=== PATIENT | male | born 1950 | race Caucasian/White ===

== ENCOUNTER 2016-11-18 15:36 | Inpatient (IN) | payer OTHER ==
[~2016-11-18] VITALS: Ht 182.9 cm; Wt 110.8 kg
--- NOTE | ~2016-11-18 | DS ---
ADMIT: 11/18/2016 RM/LOC: 315 [facility] MR#: [id number] [facility]#: [id number] [address] [place], [place] [address] JULIO DEL ANGEL [address] [place] [address] General Discharge Summary SEX: M AGE: 66 : 1950 ADMISSION DATE: 11/18/2016 DISCHARGE DATE: 11/22/2016 SERVICE: Neurosurgery. REASON FOR ADMISSION: 1. Fall. 2. Right occipital bone fracture. 3. Right temporal bone fracture. 4. TBI (traumatic brain injury). 5. Right-sided subdural hematoma. 6. Subconjunctival hemorrhage with bilateral periorbital ecchymoses and edema. 7. Hyperglycemia. CONSULTS: 1. Dr. Solorzano with Family Practice. 2. Dr. Uribe with Ophthalmology. 3. Dr. Martinez with Ear, Nose, and Throat. HOSPITAL COURSE: Mr. Del Angel is a very pleasant, but unfortunate gentleman, who on the day of admission was working on a rental property where they had a leak on the roof near the chimney. He remembers going backwards down the roof to reach the ladder to climb down and the next thing he remembered was waking up to the ambulance crew. When human resources support specialist arrived, he was amnestic to the events and was confused and bleeding from his right ear. He was brought to the [facility] emergency room for further evaluation. A CT scan of his head, neck, and chest were obtained and revealed bibasilar skull fractures, right temporal bone fractures, and a subdural hematoma. Dr. Landis was consulted. His CT scan of his neck also revealed some cervical spondylosis with degenerative disk disease, especially at C5-6 as well as C6- 7. He was admitted to the intensive care unit for close monitoring and care. Dr. Solorzano with Family Practice was consulted for assistance with management of his hyperglycemia and hypertension. Dr. Uribe with Ophthalmology was consulted for a subconjunctival hemorrhage and to rule out globe rupture. A thoracic CT scan was obtained to rule out traumatic injury. This did reveal a nondisplaced fracture of the transverse process of L1 but no other abnormalities. Hospital day #2, he was awake and alert. He continued with right CSF otorrhea. He was transferred out of the intensive care unit to the [facility] floor. Hospital day #3, he was awake and alert. He had no neurological deficit. He had no CSF drainage from his right ear. Hospital day #4, he was awake and alert, he was afebrile and his vital signs were stable. He was moving all extremities x4 with 5/5 strength. He did report that his vision was improving. He complained of a headache in the right temporal/occipital area. He complained of decreased hearing in his right ear. Nursing reported an altered unstable gait. He had periorbital ecchymoses bilaterally. Physical Therapy and Occupational Therapy were consulted. Speech Therapy was consulted for neurocognitive evaluation. Dr. Martinez with Ear, Nose, and Throat was consulted for his continued right otorrhea off and ADMIT: 11/18/2016 RM/LOC: 315 [facility] MR#: [id number] [address] [place] [id number] JULIO DEL ANGEL [address] [place] [id number] General Discharge Summary SEX: M AGE: 66 : 1950 on as well as a decreased hearing in his right ear and his temporal bone fracture. Hospital day #5, he was awake and alert. He was afebrile and his vital signs were stable. He was ambulating in the halls. He continued with some bloody otorrhea from his right ear off and on. He did report he felt that this was decreasing in amount. He continued with decreased hearing to his right ear. His bilateral periorbital ecchymosis was stable. He was evaluated by the inpatient rehabilitation unit and deemed to be an appropriate candidate for their inpatient rehabilitation with a plan to return to his prior function of living status. On the day of discharge, he was deemed medically fit for transfer to the inpatient rehabilitation unit. DISCHARGE CONDITION: Good. MEDICATIONS: 1. Cozaar 100 mg p.o. daily. 2. Glucophage 500 mg b.i.d. 3. Glucotrol XL 5 mg daily. 4. NovoLog low-dose sliding scale insulin before meals and at bedtime. If the blood sugar is 131-180, give 2 units; 181-240, 4 units, 241-300, give 6 units; 301-350, give 8 units; 351-400, give 10 units, and over 400, give 12 units and call the doctor. 5. Maalox 30 mL p.o. q.6 hours p.r.n. 6. Percocet 5 one to two p.o. q.4 hours p.r.n. 7. Surfak 240 mg b.i.d. p.r.n. 8. Tylenol 650 mg tablet elixir or suppository q.4 p.r.n. 9. Nitrostat 0.4 mg sublingual q.5 minutes x3 p.r.n. DISCHARGE INSTRUCTIONS: Per Dr. Allen should utilize fall precautions. He can have an ADA diet. He should continue with physical therapy, occupational ADMIT: 11/18/2016 RM/LOC: 315 [facility] MR#: [id number] [address] [place] [id number] MER, JULIO Darwin [address] [place] [address] General Discharge Summary SEX: M AGE: 66 : 1950 therapy, and speech therapy. He should have a noncontrast head CT prior to his appointment with Dr. Allen. He will call with any questions or concerns including neurological worsening, signs or symptoms of infection, or any other issues. FOLLOWUP: He will follow up with Dr. Allen in 1 month. He will follow up with Dr. Martinez in 2-3 weeks. DISPOSITION: He was discharged to the inpatient rehabilitation unit. Total [id number] time for the discharge planning and care coordination was 30 minutes. Karlene Donnelly APRN / Joni Landis MD / bryant JOB #: [id number] CC: Joni aLndis MD, Attending Physician NO FAMILY PHYSICIAN, Family Physician
--- NOTE | ~2016-11-18 | HP ---
ADMIT: 11/18/2016 RM/LOC: 315 [facility] MR#: [id number] [address] [address] JULIO DEL ANGEL [address] [place] [address] History and Physical SEX: M AGE: 66 : 1950 DATE OF SERVICE: HISTORY OF PRESENT ILLNESS: This 66-year-old male was seen by me in the emergency room. He apparently was working on a chimney got wet on the roof of the house and fell. He really could not give the details for that following fall primarily because he had a transient period of loss of consciousness, but by the time go to a hospital, he was awake and alert, and he was primarily complaining of pain between the shoulder blades, which is new. He denies any neck pain. He has numbness in his toes, but he says this is old and even though he says he is not diabetic, he is diabetic. He denies any tingling or numbness anywhere else, denies any weakness in his upper or lower extremities. He denies any chest or abdominal pain, does not have any neck pain. He went on to have CT scan of the brain. The CT scan of the brain showed a right temporal bone soft joint extended into the right mastoid. In addition, he has right occipital bone fracture. I reviewed the CT scan. There was a question of subdurals questionable. I could not see any . The CT of his cervical spine does show evidence of cervical spondylosis with degenerative disk disease especially at C5-6 as well as C6-7 with narrowing of the disk space and a very minimal listhesis of C5 on C6. PAST MEDICAL HISTORY: Nil of note. ALLERGIES: HE IS ALLERGIC TO CODEINE. MEDICATIONS: He is not on any medications at the present time. He apparently does not see physicians and has not seen a doctor for a long time, so he does not really have a family doctor. SOCIAL HISTORY: He stopped drinking alcohol and smoking tobacco many years ago. FAMILY HISTORY: Not contributory. REVIEW OF SYSTEMS: He denies any neck pain, has very minimal headache. He has decreased hearing on the right ear. No chest pain. No abdominal pain. Pain between the lower part of the shoulder blades. Denies any abdominal pain. Denies any weakness in his upper or lower extremities. No tingling or numbness in the upper or lower extremities or in the body. PHYSICAL EXAMINATION: GENERAL: In the emergency room, this is a 66-year-old male. He was weak. He was alert. His Paullina coma score was 15. VITAL SIGNS: Blood pressure was 158/85, pulse was 59, respirations were 11. HEENT: Pupils were 2 mm in diameter, they both reacted briskly to light. He has bilateral periorbital ecchymosis as well as subconjunctival hemorrhage bilaterally in the lateral aspect of both eyes. He has CSF otorrhea on the right side. ADMIT: 11/18/2016 RM/LOC: 315 [facility] MR#: [id number] [address] [address] JULIO DEL ANGEL [address] [place] [address] History and Physical SEX: M AGE: 66 : 1950 NECK: There is no tenderness on palpating cervical spinous processes. There is no restriction of movement of the cervical spinal; therefore, removed the C- collar. CHEST: Clear. HEART: Heart rate was regular. ABDOMEN: Soft. No area of tenderness. The bowel sounds were normal. NEUROLOGIC: The cranial nerve examination was normal except for he has decreased hearing in the right ear. Motor examination was normal. The sensory exam was normal except decreased sensation in both feet. Reflexes were diminished bilaterally symmetrically. Toes were downgoing. BACK: There was tenderness between the shoulder blades and above the T6 level. He probably has a possible fracture of the lateral wall of the left orbit, and there was multiple areas of pneumocephalus, small and there is opacity of the left sphenoid sinus. IMPRESSION: 1. Mild head injury. 2. Basal skull fracture. 3. Questionable subdural hematoma on the right side. 4. Degenerative changes of the cervical spine with narrowing of the C5, C6, and C7 disk spaces with mild retrolisthesis of C5 and C6, which is most likely degenerative in nature. 5. Diabetes. His blood sugar was over 300. 6. Hypertensive. PLAN: Plan will be to admit him to the ICU and get him seen by an bearing maker with regard to his medical problems and also by an medical staff coordinator primarily because of his subconjunctival hemorrhages. In addition, we are going to get a CT scan of the thoracic spine just to make sure that he does not have any unstable fracture of the T spine. Joni Landis MD/ bryant JOB #: [id number] CC: Joni Landis, Attending Physician Joni Landis, Family Physician
--- NOTE | 2016-11-25 08:04 | CO ---
ADMIT: 11/18/2016 RM/LOC: 315 [facility] MR#: [id number] [address] [address] JULIO DEL ANGEL [address] [place] [address] Consultation SEX: M AGE: 66 : 1950 DATE OF CONSULTATION: 11/22/2016 ATTENDING PHYSICIAN: Joni Landis CONSULTING PHYSICIAN: Darnell Martinez MD HISTORY OF PRESENT ILLNESS: Mr. Del Angel sustained a basilar skull fracture secondary to a fall. He has bloody otorrhea from the right side and diminished hearing. At the time of examination, he was alert, oriented, and cooperative in no acute distress. He has no visible nystagmus. Pupils are equal. Conjunctivae clear. Left canal, TM, middle ear clear. The right canal obstructed with bloody discharge. The canal was cleaned with #7 suction. There was squamous debris and clotted blood, cleaned. Deep canal visualization identifies disruption of the anterior canal wall skin. TM appears intact. There is hemotympanum. No purulence. Nose, mouth, and pharynx clear. He has bilateral periorbital ecchymosis. REVIEW OF DATA: CT scan of the head shows basilar skull fracture involving the lateral aspect including the scafa and external canal with fracture into the right TM joint. There was fluid in the middle ear space and small amount fluid in mastoid. The fracture involves the lateral aspect including the canal and middle ear. Does not appear to involve the otic capsule nor internal auditory canal. IMPRESSION: Right temporal bone fracture with hearing loss, likely conductive. RECOMMEND: We will allow fracture and soft tissues to heal. Plan follow up ENT exam 2-3 weeks. Reassess hearing as middle ear effusion and blood resolves. Darnell Martinez MD/ bryant JOB #: [id number] CC: Joni Landis, Attending Physician FAMILY PHYSICIAN, Family Physician
--- NOTE | 2016-12-06 08:36 | CO ---
ADMIT: 11/18/2016 RM/LOC: 315 [facility] MR#: [id number] [address] [address] JULIO DEL ANGEL [address] [place] [address] Consultation SEX: M AGE: 66 : 1950 DATE OF CONSULTATION: 11/18/2016 ATTENDING PHYSICIAN: Joni Landis CONSULTING PHYSICIAN: Sp Uribe MD HISTORY OF PRESENT ILLNESS: Julio is a 66-year-old male, who is single and was working on a rental property in which they had a leak on their roof near their chimney. He was tarring the roof in the area of the leak, he tried to go backwards down the roof to reach the ladder to climb down, and he states next thing he remembered that he was sliding off the roof feet first trying to find the ladder that he was laying on the ground talking to an ambulance crew, so he is not sure how he landed, but stated he landed on concrete. He does complain of most of his pain being in his wrist; however, he does have dizziness and nausea especially when he moves his head. He had some bleeding from his right ear and states he cannot hear out of that ear. His both upper eyelids specially are ecchymotic and swollen. He does have some obvious subconjunctival hemorrhages on his globes, although does not recall being struck in the eye. He denies any double vision. He denies any vision problems. He does wear glasses, but the one of the lenses of his glasses had fallen out. He showed me the area where his hand was hurting and states he had an x-ray, and they stated it was just sprained. He had a head CT in the ER and was found to have skull fractures and subdural reported as in the ER note of weak skull fracture and subdural hematoma. I was consulted to rule out ruptured globe. The patient also added that he thought perhaps he was lying on the ground for approximately an hour before somebody found him. He was found unresponsive in the ER. He denied having a primary care physician. His medical history was questionable for hypertension, although they stated his blood sugars were elevated here on the floor. His blood pressure on admission was 180/100. He denies any medications and is unsure of his last eye exam, although he states he is nearsighted. ALLERGIES: CODEINE. SOCIAL HISTORY: His closest family members are a niece and a nephew, but he thought perhaps they were not at home in [place]. He otherwise lives alone. He does state he had a fall in the past several years ago working for the same company. PHYSICAL EXAMINATION: GENERAL: On my exam, the patient was awake and alert. He had just been given drops prior to my getting here. HEENT: His pupils were so reactive and fairly even at this time. He had very striking bilateral periorbital ecchymosis, and he had a gauze dressing over his right ear and stated he could not hear out of that ear. He had full motility. Count fingers confrontation and visual patiño were normal in both eyes. His eye pressures were 18. His visual acuity without correction near card was 20/30 in the right eye and 20/50 in the left. He does state that he normally has to wear glasses, but once again, they are broken, and he has a myopia and astigmatism. He had a slit-lamp exam brought up to the floor. His ADMIT: 11/18/2016 RM/LOC: 315 [facility] MR#: [id number] [address] [address] MERJULIO Darwin [address] [place] [address] Consultation SEX: M AGE: 66 : 1950 lids and lashes were significant for bruising and swelling (ecchymosis) on both upper lids and some on his lower lids. He was able to open his right eye without any problems. His left eye was almost swollen shut, although he has had it was improving and I had a good view of his globe. Once again, there were no obvious lacerations or bleeding on his external periorbita. Conjunctivae, he had temporal subconjunctival hemorrhages. They were not bullous in nature. There was no evidence on the slit-lamp exam to suggest ruptured globe. Discs and corneas are both clear. There was no stain uptake. His anterior chambers were deep. No hyphema. His pupils were in the process of dilating. They were round. They were reactive. His lens had trace NS. After visiting with him and allowing the drops to work further, we finished the dilated exam with a 78 diopter at the slit-lamp. His optic nerves were flat, sharp, and pink. They were normal without any edema. He had a cup-to- disk ratio of 0.4. His macula was normal without any evidence of heme or edema from a blunt forced trauma. His vessels were normal. Once again, there was no preretinal, intraretinal, or subarachnoid hemorrhages. There were no vitreous hemorrhages. Vessels are normal. Peripheral retina was also normal. ASSESSMENT: 1. Head trauma with a bilateral periorbital ecchymosis and subconjunctival hemorrhages with intact globes and intact vision. 2. Head injury with a skull fracture on the right in the temporal area extending to the base with bleeding from the ear canal. See neurologist's report in regard to that. PLAN: I reassured the patient that his eyes would be fine. He would be dilated for sometime and this may cause some blurred near vision. I did warn the nurses in regard to their neuro checks. Long-term sequela if he had blunt trauma to his globes would be increased risk of retinal tear or detachment down the line. He is to call if he has flashing lights, significant increase in floaters, although he states he has always had floaters. I told him there might be a significant change in number or size or any other vision problems if he is still on inpatient, he is to let the nurses know so they can contact me, or if it happens once he is discharged, once again he is to follow up with us. Sp Uribe MD/ bryant JOB #: [id number] CC: Joni Landis, Attending Physician Joni Landis, Family Physician
--- NOTE | 2016-12-10 08:06 | ER ---
ADMIT: 11/18/2016 RM/LOC: 315 [facility] MR#: [id number] [address] [address] JULIO DEL ANGEL [address] [place] [address] Emergency Room Report SEX: M AGE: 66 : 1950 DATE: 11/18/2016 HISTORY OF PRESENT ILLNESS: A 66-year-old male, who was found down upside a ladder at an apartment. The patient has no recall of the event. Apparently, a passerby saw him unconscious, lying in the yard of the apartment. Squad arrived and found him confused and bleeding from the right ear. Subsequently transferred him to the Emergency Department, where the patient remains amnestic for the event. PHYSICAL EXAMINATION: HEENT: He has blood from the right ear canal. He had bilateral contusions over both superior orbits. He has no obvious tenderness on palpation of the scalp. His airway is patent. There is no blood in the nares. EOMs are intact. No signs of oral trauma. LUNGS: Clear to auscultation. CARDIOVASCULAR: No murmurs, rubs, or gallops. ABDOMEN: Obese, soft, nontender. Positive bowel sounds. EXTREMITIES: His left wrist is tender to palpation. Pelvis is stable. Lower extremities show signs of chronic venous stasis. His right upper extremity is atraumatic. BACK: His back is normal to exam. EMERGENCY ROOM COURSE: He was placed in a C-collar. Head, neck, chest CTs were obtained, results of which showed significant trauma of the head with two very small subdural basilar skull fracture and oblique fracture across the temporal bone on the right. Dr. Landis was contacted emergently from the ER. He saw the patient in the Emergency Department for subdural basilar skull fracture. Dr. Solorzano was subsequently consulted for likely diabetes management, so we are uncertain as this patient denied seeing a physician for years. His pertinent labs revealed a glucose of 330, however. He is being admitted for bilateral subdurals and a basilar skull fracture. EDIT: 11/21/2016 0747 njv Pablo Bowling MD/ bryant JOB #: [id number] CC: Joni Landis MD, Attending Physician NO FAMILY PHYSICIAN, Family Physician
--- NOTE | 2016-12-12 09:00 | CO ---
ADMIT: 11/18/2016 RM/LOC: 315 [facility] MR#: [id number] [address] [address] JULIO DEL ANG[address] [place] [address] Consultation SEX: M AGE: 66 : 1950 DATE OF CONSULTATION: 11/18/2016 ATTENDING PHYSICIAN: Joni Landis CONSULTING PHYSICIAN: Ke Solorzano MD CHIEF COMPLAINT: The patient recently had a fall off a roof and has multiple fractures of his calvarium as well as a small subdural hematoma. We were consulted for medical management of elevated glucose and high blood pressure. HISTORY OF PRESENT ILLNESS: The patient states that this afternoon, he was on the roof trying to tar a chimney as it was leaking. When he went to get off the roof, he thought his foot was over the ladder but he misstepped and fell on the ground. He is unsure how long he was down. He thinks he had been around an hour. His next-door neighbor found him and called the paramedics. The patient does not remember much except for arriving here in the ER. The patient had a head CT that showed multiple acute fractures of the calvarium, the right advent, specifically mastoid air cell opacification etc. He also has some small subdural hematoma. Overall, his pain is doing okay at this time. The patient denies any health history except that he has elevated blood pressure that is a little bit stable. He has never taken any medications for it. He has not seen a doctor for it. In fact, he has not seen a doctor in many, many years. ALLERGIES: INCLUDE CODEINE. HE FELT SICK TO HIS STOMACH WHILE TAKING THE CODEINE. MEDICATIONS: None. FAMILY HISTORY: Significant for high blood pressure, diabetes, high cholesterol. His father had a history of an SD four times. There is breast cancer in his mother. He has thyroid disease in his maternal aunt and maternal cousin. SOCIAL HISTORY: He is a former smoker but quit in 1971. He denies any drug use. He has not had any alcohol since 1971 as well. He is not . PAST SURGICAL HISTORY: None. REVIEW OF SYSTEMS: Significant for sometimes pain but manageable. No visual changes. He does have some increased swelling around his orbits. He denies chest pain, shortness of breath, palpitations. He does have some nausea and has vomited. He has not had any diarrhea, and he does not have any abdominal pain. Extremities he can move without difficulty. He does have bruising in multiple areas across the body as well as on his face. PHYSICAL EXAMINATION: VITAL SIGNS: Blood pressure was 200/114, afebrile, 96.6, pulse 56, respiratory rate 13. He is 100% SpO2 on room air. GENERAL: He is no acute distress. Alert and oriented x3. He is very pleasant. ADMIT: 11/18/2016 RM/LOC: 315 [facility] MR#: [id number] [address] [id number] JULIO DEL AN[address] [place] [address] Consultation SEX: M AGE: 66 : 1950 HEENT: Normocephalic, but does have traumatic head injuries. He has multiple areas of bruising, swelling around his orbits as well as swelling of his jaw. HEART: Regular rate and rhythm. No murmur. LUNGS: Clear to auscultation bilaterally. ABDOMEN: Soft. Positive bowel sounds. No mass. EXTREMITIES: Does show some venous stasis bilaterally, a little bit of increased swelling of the lower extremities. LABORATORY DATA: Workup in the ER, his BMP was normal except for an elevated glucose of 304 and an elevated urine-creatinine ratio of 21.25. Prothrombin time and INR was normal. Cervical spine showed degenerative change without acute fractures. Chest CT did not show any acute findings in the chest. Head CT showed again multiple areas of fractures as well as the 2 mm acute subdural hematoma on the right temporal region as well as a small subdural hematoma in the right occipital region with pneumocephalus and a possible nondisplaced left lateral wall fracture, and a moderate amount of left orbital soft tissue swelling is present as well. CBC; he is anemic at 13.2 for hemoglobin, white blood cell count was 7.8, and platelets are 187. Wrist; I guess he does have a little bit of wrist pain and that showed no acute fracture. Thoracic spine showed no compression deformities of the thoracic spine. 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 ASSESSMENT AND PLAN: 1. Fallwith multiple calvarium fractures 2. Subdural hematoma 3. Elevated Blood Pressure 4. Elevated blood glucose This is a 66-year-old male who fell off a roof and has multiple head fractures and a small subdural hematoma. He has elevated blood pressure in the 180s to 200s. We will bring down his blood pressure with a goal of less than 150/90. I will start him on losartan 50 mg daily. We will also have hydralazine 10 mg IV q.2 hours p.r.n. for blood pressure over 150/90. We will get fasting lipid panel, hemoglobin A1c, CBC and BMP in the morning as well as a TSH to assess why he has elevated glucose as well as to get other underlying possible diagnoses as well. We will also get diabetic education by to come see him, and we will give him some Zofran 4 mg IV q.6 hours as needed for nausea. Neurosurgery is primary and we will follow along and assist as needed. The patient was discussed with Dr. Solorzano. Dr. Solorzano did see the patient as well. EDIT: 11/21/2016 0745 asia Angel MD Resident / Ke Solorzano MD / bryant JOB #: [id number] CC: Joni Landis, Attending Physician NO FAMILY PHYSICIAN, Family Physician
== END 2016-11-22 10:42 | disposition short-term general hospital (02) | DRG 86 ==
LOC: ER 15:36 → 3ICU 17:10
PROVIDERS: ADMIT Neurological Surgery
DX: S02.19XA Other fracture of base of skull, initial encounter for closed fracture (principal); S32.019A Unspecified fracture of first lumbar vertebra, initial encounter for closed fracture; S06.5X1A Traumatic subdural hemorrhage with loss of consciousness of 30 minutes or less, initial encounter; S02.119A Unspecified fracture of occiput, initial encounter for closed fracture; W13.2XXA Fall from, out of or through roof, initial encounter; H11.33 Conjunctival hemorrhage, bilateral; M50.322 Other cervical disc degeneration at C5-C6 level; I10 Essential (primary) hypertension; E66.9 Obesity, unspecified; E11.65 Type 2 diabetes mellitus with hyperglycemia; M47.812 Spondylosis without myelopathy or radiculopathy, cervical region; Z87.891 Personal history of nicotine dependence; Z82.49 Family history of ischemic heart disease and other diseases of the circulatory system; Z68.34 Body mass index [BMI] 34.0-34.9, adult

== ENCOUNTER 2016-11-22 10:35 | Inpatient (IN) | payer OTHER ==
[~2016-11-22] VITALS: Ht 182.9 cm; Wt 110.3 kg
[2016-11-25] MEDS ORDERED: COZAAR DPS50 MG PO (21:08)
[2016-11-25] MEDS ORDERED: ASCORBIC ACID500 MG PO (21:08)
[2016-11-25] MEDS ORDERED: FEOSOL-DPS325 MG PO (21:08)
[2016-11-25] MEDS ORDERED: GLUCOPHAGE DPS850 MG PO (21:09)
[2016-11-25] MEDS ORDERED: VITAMIN D31000 UNIT PO (21:09)
[2016-11-25] MEDS ORDERED: GLUCOTROL DPS5 MG PO (21:10)
--- NOTE | 2016-12-28 07:13 | DS ---
ADMIT: 11/22/2016 RM/LOC: 601 [facility] MR#: [id number] [address] [address] JULIO DEL ANG[address] [place] [address] General Discharge Summary SEX: M AGE: 66 : 1950 ADMISSION DATE: 11/22/2016 DISCHARGE DATE: 11/25/2016 DISCHARGE DIAGNOSES: Brain dysfunction 02.22, traumatic closed injury, S06.5X1S traumatic subdural hemorrhage with loss of consciousness of 30 minutes or less sequela. Onset 11/18/2016. Comorbid conditions per initial H and P. Other diagnoses per hospital course below. HOSPITAL COURSE: Please see my initial H and P for details prior to transfer to the IRU. Mechanical means and ambulation early used for DVT prophylaxis. Dietitian followed to optimize nutrition. Pharmacy followed to optimize medication management. Tylenol and tramadol for pain. Melatonin and trazodone for insomnia. Risperidone for agitation. Delirium as needed. DNR/DNI decision on 11/22/2016. Sliding scale insulin adjusted to low-dose Percocet, Surfak, and Nitrostat all discontinued. Senokot-S for constipation. Lab was monitored regularly. Diabetic education done prior to discharge. Glucotrol discontinued. Increase metformin to 850 mg for diabetes. Cozaar decreased to 50 mg for hypertension controlled. Sliding scale insulin discontinued, but continued Accu-Cheks for monitoring response to metformin and off Glucotrol. Trazodone, melatonin, and Risperdal discontinued, no longer necessary. Glucophage increased to 1000 mg b.i.d. with meals. Iron deficiency replaced with Feosol and vitamin C, had some pain to his wrist from the fall and did ice 20 minutes on, 20 minutes off and repeat it p.r.n., no heat. Sportscreme p.r.n. to the wrist pain. Vitamin D deficiency replaced. The patient was medically stable at time of discharge. Please see IRU interdisciplinary discharge summary for details regarding progress in therapy. DISCHARGE DISPOSITION: Home. DISCHARGE MEDICATIONS: Please see discharge med record. Recommended he continue on Feosol and vitamin C for 1 month and then can stop that and then the only other medications he has is Cozaar 50 mg daily and Glucophage 850 mg b.i.d. with meals in addition to glipizide restarted at 5 mg p.o. with breakfast x7 days and then 5 mg b.i.d. with breakfast and supper, also vitamin D, should stay on replacement for that since he was low. FOLLOWUP: ENT, Dr. Martinez with hearing assessment of vision screening, new lenses frames, OT driving assessment. Dr. Solorzano in 1 [address] Nicola Allen in a month prior to appointment. Dr. Allen on December 23. Dr. Solorzano on December 12. Jorge Fournier MD/ bryant JOB #: [id number] CC:
== END 2016-11-25 16:45 | disposition home or self-care (01) | DRG 945 ==
LOC: 6IRU 10:35
PROVIDERS: ADMIT Physical Medicine & Rehabilitation
PROC: F08Z0FZ Bathing/Showering Techniques Treatment using Assistive, Adaptive, Supportive or Protective Equipment (ICD-10-PCS; principal; 2016-11-22)
PROC: F07Z9FZ Gait Training/Functional Ambulation Treatment using Assistive, Adaptive, Supportive or Protective Equipment (ICD-10-PCS; principal; 2016-11-22)
PROC: F06Z6ZZ Communicative/Cognitive Integration Skills Treatment (ICD-10-PCS; principal; 2016-11-22)
PROC: F08Z2FZ Grooming/Personal Hygiene Treatment using Assistive, Adaptive, Supportive or Protective Equipment (ICD-10-PCS; principal; 2016-11-22)
DX: S06.5X1D Traumatic subdural hemorrhage with loss of consciousness of 30 minutes or less, subsequent encounter (principal); D62 Acute posthemorrhagic anemia; E11.40 Type 2 diabetes mellitus with diabetic neuropathy, unspecified; F07.81 Postconcussional syndrome; E11.65 Type 2 diabetes mellitus with hyperglycemia; M62.81 Muscle weakness (generalized); E66.9 Obesity, unspecified; R27.8 Other lack of coordination; E55.9 Vitamin D deficiency, unspecified; R26.2 Difficulty in walking, not elsewhere classified; D50.9 Iron deficiency anemia, unspecified; M25.532 Pain in left wrist; H90.2 Conductive hearing loss, unspecified; R20.0 Anesthesia of skin; G47.00 Insomnia, unspecified; R51 Headache; H73.891 Other specified disorders of tympanic membrane, right ear; S00.12XD Contusion of left eyelid and periocular area, subsequent encounter; S00.11XD Contusion of right eyelid and periocular area, subsequent encounter; S09.91 Unspecified injury of ear; I10 Essential (primary) hypertension; W13.2XXD Fall from, out of or through roof, subsequent encounter; Z68.33 Body mass index [BMI] 33.0-33.9, adult; Z79.4 Long term (current) use of insulin; Z87.891 Personal history of nicotine dependence; Z66 Do not resuscitate

== ENCOUNTER → 2016-12-23 | Outpatient (CLI) | payer OTHER ==
[~2016-12-23] MED LIST: ASCORBIC ACID500 MG PO; COZAAR DPS50 MG PO; FEOSOL-DPS325 MG PO; GLUCOPHAGE DPS850 MG PO; GLUCOTROL DPS5 MG PO; VITAMIN D31000 UNIT PO
== END | disposition home or self-care (01) ==
LOC: RAD.S 08:30
DX: I62.00 Nontraumatic subdural hemorrhage, unspecified (principal); S02.91XA Unspecified fracture of skull, initial encounter for closed fracture; S02.19XA Other fracture of base of skull, initial encounter for closed fracture; W19.XXXA Unspecified fall, initial encounter